=== PATIENT | male | born 2000 | race Caucasian/White ===

== ENCOUNTER 2023-10-26 00:05 | Emergency (ER) | payer BC, MEDICAID, OTHER ==
[~2023-10-26] VITALS: Ht 167.6 cm; Wt 78.9 kg
[2023-10-26 00:12] VITALS: BP 134/74; PULSE 89; RESP 14; TEMP 98.1; O2SAT 99
[2023-10-26] MEDS: KETOROLAC 30 MG/ML VIAL IM ONE (01:22)
[2023-10-26] MEDS: LIDOCAINE MPF 1% 10 MG/ML VIAL INJ ONE (02:14)
[2023-10-26] MEDS ORDERED: ACET500T99 PO (02:19)
[2023-10-26 02:24] VITALS: BP 119/79; PULSE 80; RESP 17; TEMP 98.1; O2SAT 99
== END 2023-10-26 02:24 | disposition home or self-care (01) ==
LOC: MED 00:05
DX: S01.01XA Laceration without foreign body of scalp, initial encounter (principal); Z79.899 Other long term (current) drug therapy; W50.0XXA Accidental hit or strike by another person, initial encounter; Y93.89 Activity, other specified; Y92.89 Other specified places as the place of occurrence of the external cause; Y99.8 Other external cause status
CPT/HCPCS: 12002; 96372; 99283; J1885; J2001